=== PATIENT | female | born 1975 | race Caucasian/White ===

== ENCOUNTER → 2017-04-03 | Outpatient (CLI) | payer BC ==
--- NOTE | 2017-04-03 16:20 | MAMMOGRAPHY REPORT ---
BILATERAL DIGITAL DIAGNOSTIC MAMMOGRAM TOMOSYNTHESIS WITH CAD AND TARGETED LEFT ULTRASOUND: 04/03/2017 CLINICAL HISTORY: The patient reports she had a palpable lump in her left axillary region a few weeks ago. The lump was not felt by her provider on clinical exam and the patient can no longer feel the lump. TECHNIQUE: Breast tomosynthesis in addition to standard 2D mammography was performed. Current study was also evaluated with a Computer Aided Detection (CAD) system. Bilateral CC and MLO views includin g implant displaced views were obtained; tomosynthesis images were obtained of the implant displaced views only. COMPARISON: Comparison is made to exams dated: 11/14/2015 mammogram, 04/22/2014 mammogram, 04/22/2014 u ltrasound, and 04/08/2014 mammogram - [facility]. BREAST COMPOSITION: There are scattered areas of fibroglandular density in both breasts. FINDINGS: There are no suspicious masses, calcifications, or areas of architectural distortion noted in either breast. There has been no significant interval change compared to prior exams. Bilateral subpectoral saline implants are again noted. Targeted ultrasound was performed of the area of the previously felt lump. The patient could not pin point the exact location of the lump so ultrasound was performed of the general region in the left ax illa. No suspicious masses or other suspicious sonographic abnormalities are evident. Incidentally noted are morphologically normal left axillary lymph nodes without evidence of adenopathy. IMPRESSION: ACR BI-RADS CATEGORY 2: BENIGN, TARGETED ULTRASOUND ACR BI-RADS CATEGORY 2: BENIGN No suspicious mammographic or sonographic abnormality at the site of the left axillary lump which the patient can no longer feel. There is no mammographic or targeted sonographic evidence of malignancy . Recommend clinical follow-up for the left axillary lump, and recommend routine bilateral screening mammograms in one year. The patient has been verbally notified of the results. Approximately 10% of breast cancers are not detected with mammography. A negative mammographic report should not delay biopsy if a clinically suggestive mass is present. Saundra Carrero M.D. /:04/03/2017 14:39:18 Replenishment Buyer: Ella OSORIO)([place]), [facility] letter sent: Normal 1/2 BI-RADS Code: ACR BI-RADS Category 2: Benign Ultrasound BI-RADS: ACR BI-RADS Category 2: Benign
== END | disposition home or self-care (01) ==
LOC: C.MAMM 14:03
PROVIDERS: ATTEND Physician Assistant
DX: N63 Unspecified lump in breast (principal)

== ENCOUNTER → 2017-11-21 | Outpatient (CLI) | payer BC | END | disposition home or self-care (01) | LOC: C.PAPS 11:33 | PROVIDERS: ATTEND Obstetrics & Gynecology | DX: Z01.419 Encounter for gynecological examination (general) (routine) without abnormal findings (principal) ==